=== PATIENT | male | born 1970 | race Hispanic/Latino ===

== ENCOUNTER 2022-03-29 20:32 | Inpatient (IN) | payer MEDICARE, MEDICAID ==
[~2022-03-29 20:32] MED LIST: Iopamidol-370 76% 500 ML 1 ML ONE
[2022-03-29] MEDS ORDERED: Ondansetron ODT 4 MG TAB ONE (21:48)
[2022-03-29] MEDS ORDERED: Ondansetron PF 4 MG/2 ML Vial ONE (22:18)
[2022-03-29 22:22] LABS: #Lymphocytes 1.5 thou/uL (1.20-3.40); #Neutrophils 10.2 thou/uL (1.40-6.50); %Basophils 0.2 % (0.0-1.0); %Eosinophils 0.2 % (0.0-10.0); %Monocytes 7.9 % (0.0-10.0); %Neutrophils 79.8 % (42.0-75.0); Hemoglobin 18.4 g/dL (14.0-18.0); Mean Corpuscular HGB CONC 32.7 g/dL (32.0-36.0); Mean Corpuscular Hemoglobin 32.4 pg (27.0-31.0); Mean Corpuscular Volume 99.3 fL (78.0-98.0); Mean Platelet Volume 8.5 fL (7.4-10.4); Platelet Count 205 thou/uL (130-400); RBC Distribution Width 12.8 % (11.5-14.5); Red Blood Cell (RBC) Count 5.67 mill/uL (4.70-6.10); White Blood Cell (WBC) Count 12.8 thou/uL (4.8-10.8)
[2022-03-29 22:42] LABS: ALT (SGPT) 37 U/L (8-55); AST (SGOT) 23 U/L (5-34); Albumin 4.7 g/dL (3.5-5.0); Alkaline Phosphatase 162 U/L (40-110); Anion Gap 17 mmol/L (10-20); BUN (Urea Nitrogen) 19 mg/dL (8.9-20.6); Calc. Creatinine Clearance 0 mL/min (70-130); Calcium 10.2 mg/dL (7.8-10.44); Carbon Dioxide 23 mmol/L (22-29); Chloride 110 mmol/L (98-107); Estimated GFR 91; Globulin 3.8 g/dL (2.4-3.5); Glucose 475 mg/dL (70-105); Lipase 14 U/L (8-78); Protein, Total 8.5 g/dL (6.0-8.3); Sodium 146 mmol/L (136-145)
[2022-03-29 23:04] LABS: Bilirubin Negative (Negative); Blood, Urine Negative (Negative); Clarity Clear (Clear); Glucose, Urine (Dipstick) Greater than 1000 mg/dL (Negative); Ketone, Urine 10 mg/dL (Negative); Leukocyte Negative Leu/uL (Negative); Nitrite Negative (Negative); Protein, Urine (Dipstick) Negative (Neg-Trace); Urobilinogen Normal mg/dL (Less than 2)
[2022-03-29 23:06] LABS: Specific Gravity, Urine 1.049 (1.002-1.036)
[2022-03-30] MEDS ORDERED: Ondansetron PF 4 MG/2 ML Vial IVP PRN (03:00)
[2022-03-30] MEDS ORDERED: Ondansetron ODT 4 MG TAB SL PRN (03:00)
[2022-03-30] MEDS: Sodium Chloride 0.9% 1,000 ML IV SCH ×2 (03:35→11:06)
[2022-03-30] MEDS ORDERED: Morphine 4 MG/ML VIAL ONE (08:08)
[2022-03-30] MEDS ORDERED: Dextrose 5% in Water 1,000 ML IV PRN (08:37)
[2022-03-30] MEDS ORDERED: Insulin Regular 300 UNITS/3 ML VIAL SC PRN ×2 (08:37)
[2022-03-30] MEDS ORDERED: Dextrose 50% Abboject 50 ML SYRINGE SLOW IVP PRN (08:37)
[2022-03-30] MEDS ORDERED: Insulin Regular 300 UNITS/3 ML VIAL SC SCH ×2 (08:45)
[2022-03-30 09:11] LABS: Hemoglobin A1c 8.1 % (4.0-6.0)
[2022-03-30 09:28] LABS: Troponin I Less than 0.010 ng/mL (< 0.028)
[2022-03-30] MEDS: Morphine 2 MG/ML VIAL SLOW IVP PRN (16:35)
[2022-03-30] MEDS: OLANZapine ODT 5 MG TAB PO SCH (20:09)
[2022-03-31 05:28] LABS: #Basophils 0.1 thou/uL (0.0-0.2); #Eosinphils 0.2 thou/uL (0.0-0.7); #Monocytes 1.1 thou/uL (0.11-0.59); #Neutrophils 5.4 thou/uL (1.40-6.50); %Basophils 0.8 % (0.0-1.0); %Eosinophils 1.9 % (0.0-10.0); %Lymphocytes 30.4 % (21.0-51.0); %Neutrophils 55.9 % (42.0-75.0); Hemoglobin 14.1 g/dL (14.0-18.0); Mean Platelet Volume 8.1 fL (7.4-10.4); Platelet Count 161 thou/uL (130-400); RBC Distribution Width 12.4 % (11.5-14.5); Red Blood Cell (RBC) Count 4.39 mill/uL (4.70-6.10); White Blood Cell (WBC) Count 9.7 thou/uL (4.8-10.8)
[2022-03-31 05:54] LABS: ALT (SGPT) 85 U/L (8-55); AST (SGOT) 85 U/L (5-34); Albumin 3.3 g/dL (3.5-5.0); Alkaline Phosphatase 130 U/L (40-110); Anion Gap 12 mmol/L (10-20); BUN (Urea Nitrogen) 9 mg/dL (8.9-20.6); Bilirubin, Total 1.4 mg/dL (0.2-1.2); Calc. Creatinine Clearance 125 mL/min (70-130); Calcium 8.6 mg/dL (7.8-10.44); Carbon Dioxide 27 mmol/L (22-29); Chloride 115 mmol/L (98-107); Estimated GFR 114; Globulin 2.5 g/dL (2.4-3.5); Glucose 125 mg/dL (70-105); Potassium 3.6 mmol/L (3.5-5.1); Protein, Total 5.8 g/dL (6.0-8.3); Sodium 150 mmol/L (136-145)
[2022-03-31] MEDS: Megestrol Acetate 40 MG TAB PO SCH (08:19)
[2022-03-31] MEDS: Escitalopram Oxalate 20 mg Tablet PO SCH (08:19)
[2022-03-31] MEDS ORDERED: Lactated Ringer's 1,000 ML IV SCH (18:30)
[2022-03-31] MEDS: OLANZapine ODT 5 MG TAB PO SCH (20:57)
[2022-04-01] MEDS: Morphine 2 MG/ML VIAL SLOW IVP PRN (03:54)
[2022-04-01 05:48] LABS: #Eosinphils 0.2 thou/uL (0.0-0.7); #Monocytes 0.9 thou/uL (0.11-0.59); #Neutrophils 4.4 thou/uL (1.40-6.50); %Basophils 0.3 % (0.0-1.0); %Eosinophils 2.1 % (0.0-10.0); %Lymphocytes 35.2 % (21.0-51.0); %Monocytes 10.8 % (0.0-10.0); %Neutrophils 51.6 % (42.0-75.0); Hemoglobin 14.3 g/dL (14.0-18.0); Mean Corpuscular HGB CONC 32.6 g/dL (32.0-36.0); Mean Corpuscular Hemoglobin 32.2 pg (27.0-31.0); Mean Corpuscular Volume 98.9 fL (78.0-98.0); Mean Platelet Volume 8.3 fL (7.4-10.4); Platelet Count 155 thou/uL (130-400); RBC Distribution Width 12.3 % (11.5-14.5); Red Blood Cell (RBC) Count 4.43 mill/uL (4.70-6.10); White Blood Cell (WBC) Count 8.6 thou/uL (4.8-10.8)
[2022-04-01 06:07] LABS: ALT (SGPT) 61 U/L (8-55); AST (SGOT) 46 U/L (5-34); Albumin 3.3 g/dL (3.5-5.0); Alkaline Phosphatase 127 U/L (40-110); Anion Gap 14 mmol/L (10-20); BUN (Urea Nitrogen) 7 mg/dL (8.9-20.6); Calc. Creatinine Clearance 123 mL/min (70-130); Calcium 8.6 mg/dL (7.8-10.44); Carbon Dioxide 26 mmol/L (22-29); Chloride 111 mmol/L (98-107); Estimated GFR 113; Globulin 2.5 g/dL (2.4-3.5); Glucose 101 mg/dL (70-105); Potassium 3.2 mmol/L (3.5-5.1); Protein, Total 5.8 g/dL (6.0-8.3); Sodium 148 mmol/L (136-145)
[2022-04-01 06:23] LABS: HBCM Index 0.08 S/CO (0-0.79); HBSAg Index 0.28 S/CO (0-0.99); Hep A IgM AB Non-Reactive (NonReactive); Hep A IgM S/CO 0.18 S/CO (0-0.79); Hep B Surf Ag Non-Reactive S/CO (NonReactive); Hep C IgG Ab Non-Reactive (NonReactive); Hep C Index 0.06 S/CO (0-0.79); Hepatitis B Core IgM Abs Non-Reactive (NonReactive)
[2022-04-01] MEDS: Lactated Ringer's 1,000 ML IV SCH ×2 (10:30→15:45)
[2022-04-01] MEDS: Potassium Chloride 20 MEQ TAB PO SCH ×2 (10:31→17:47)
[2022-04-01] MEDS: Megestrol Acetate 40 MG TAB PO SCH (10:31)
[2022-04-01] MEDS: Escitalopram Oxalate 20 mg Tablet PO SCH (10:31)
[2022-04-01] MEDS: OLANZapine ODT 5 MG TAB PO SCH (20:03)
[2022-04-02] MEDS: Morphine 2 MG/ML VIAL SLOW IVP PRN (01:19)
[2022-04-02 06:03] LABS: #Basophils 0.1 thou/uL (0.0-0.2); #Eosinphils 0.1 thou/uL (0.0-0.7); #Lymphocytes 2.5 thou/uL (1.20-3.40); #Neutrophils 6.4 thou/uL (1.40-6.50); %Basophils 0.6 % (0.0-1.0); %Lymphocytes 24.9 % (21.0-51.0); %Monocytes 10.2 % (0.0-10.0); %Neutrophils 63.4 % (42.0-75.0); Hemoglobin 15.8 g/dL (14.0-18.0); Mean Corpuscular HGB CONC 32.9 g/dL (32.0-36.0); Mean Corpuscular Hemoglobin 32.3 pg (27.0-31.0); Mean Corpuscular Volume 98.3 fL (78.0-98.0); Mean Platelet Volume 8.5 fL (7.4-10.4); Platelet Count 159 thou/uL (130-400); RBC Distribution Width 12.2 % (11.5-14.5); Red Blood Cell (RBC) Count 4.88 mill/uL (4.70-6.10)
[2022-04-02 06:38] LABS: Magnesium 1.9 mg/dL (1.6-2.6)
[2022-04-02 08:36] LABS: Albumin 3.5 g/dL (3.5-5.0)
[2022-04-02 08:37] LABS: Chloride 105 mmol/L (98-107); Potassium 3.9 mmol/L (3.5-5.1); Sodium 142 mmol/L (136-145)
[2022-04-02 08:38] LABS: Calcium 8.8 mg/dL (7.8-10.44)
[2022-04-02 08:39] LABS: Globulin 2.9 g/dL (2.4-3.5); Glucose 64 mg/dL (70-105); Protein, Total 6.4 g/dL (6.0-8.3)
[2022-04-02 08:40] LABS: Anion Gap 19 mmol/L (10-20); Carbon Dioxide 22 mmol/L (22-29)
[2022-04-02 08:41] LABS: Bilirubin, Total 1.2 mg/dL (0.2-1.2)
[2022-04-02 08:42] LABS: Alkaline Phosphatase 198 U/L (40-110); Calc. Creatinine Clearance 131 mL/min (70-130); Estimated GFR 115
[2022-04-02 08:43] LABS: BUN (Urea Nitrogen) 9 mg/dL (8.9-20.6)
[2022-04-02 08:44] LABS: AST (SGOT) 152 U/L (5-34)
[2022-04-02 08:45] LABS: ALT (SGPT) 106 U/L (8-55)
[2022-04-02] MEDS: Escitalopram Oxalate 20 mg Tablet PO SCH (09:05)
[2022-04-02] MEDS: Megestrol Acetate 40 MG TAB PO SCH (09:05)
[2022-04-02] MEDS: OLANZapine ODT 5 MG TAB PO SCH (20:39)
[2022-04-02] MEDS ORDERED: Dextrose 5 %-0.45 % NaCl 1,000 ML IV SCH (22:30)
[2022-04-03 05:20] LABS: #Eosinphils 0.3 thou/uL (0.0-0.7); #Lymphocytes 2.5 thou/uL (1.20-3.40); #Neutrophils 5.5 thou/uL (1.40-6.50); %Basophils 0.3 % (0.0-1.0); %Eosinophils 2.8 % (0.0-10.0); %Lymphocytes 27.1 % (21.0-51.0); %Monocytes 10.4 % (0.0-10.0); %Neutrophils 59.3 % (42.0-75.0); Hemoglobin 16.2 g/dL (14.0-18.0); Mean Corpuscular HGB CONC 33.1 g/dL (32.0-36.0); Mean Corpuscular Hemoglobin 32.9 pg (27.0-31.0); Mean Corpuscular Volume 99.2 fL (78.0-98.0); Mean Platelet Volume 8.4 fL (7.4-10.4); Platelet Count 168 thou/uL (130-400); RBC Distribution Width 12.1 % (11.5-14.5); Red Blood Cell (RBC) Count 4.94 mill/uL (4.70-6.10); White Blood Cell (WBC) Count 9.2 thou/uL (4.8-10.8)
[2022-04-03 05:47] LABS: ALT (SGPT) 74 U/L (8-55); AST (SGOT) 58 U/L (5-34); Albumin 3.6 g/dL (3.5-5.0); Alkaline Phosphatase 188 U/L (40-110); Anion Gap 20 mmol/L (10-20); BUN (Urea Nitrogen) 10 mg/dL (8.9-20.6); Bilirubin, Total 0.9 mg/dL (0.2-1.2); Calc. Creatinine Clearance 110 mL/min (70-130); Calcium 8.7 mg/dL (7.8-10.44); Carbon Dioxide 17 mmol/L (22-29); Chloride 106 mmol/L (98-107); Estimated GFR 110; Globulin 2.9 g/dL (2.4-3.5); Glucose 127 mg/dL (70-105); Potassium 3.8 mmol/L (3.5-5.1); Protein, Total 6.5 g/dL (6.0-8.3); Sodium 139 mmol/L (136-145)
[2022-04-03] MEDS: Escitalopram Oxalate 20 mg Tablet PO SCH (09:08)
[2022-04-03] MEDS: Megestrol Acetate 40 MG TAB PO SCH (09:09)
[2022-04-03 11:17] VITALS: BP 102/68; TEMP 98.4
[2022-04-03] MEDS ORDERED: metFORMIN 500 MG TAB PO SCH (17:00)
== END 2022-04-03 16:30 | disposition home or self-care (01) | DRG 445 ==
LOC: ERS 20:32 → SURG B 03-30 02:35 → ERHOLD 03-30 02:46 → SURG B 03-30 09:52 → OBSVTOIN 03-31 10:11
PROVIDERS: ADMIT Internal Medicine; ATTEND Internal Medicine
DX: K80.50 Calculus of bile duct without cholangitis or cholecystitis without obstruction (principal); E87.1 Hypo-osmolality and hyponatremia; Z20.822 Contact with and (suspected) exposure to COVID-19; F79 Unspecified intellectual disabilities; F20.9 Schizophrenia, unspecified; E87.6 Hypokalemia; E11.65 Type 2 diabetes mellitus with hyperglycemia; Z79.899 Other long term (current) drug therapy
CPT/HCPCS: 36415; 36416; 74177; 74181; 76705; 78226; 80053; 80074; 81003; 83036; 83690; 83735; 84484; 85025; 93005; 93010; 96361; 96374; 96375; A9537; J1815; J2270; J2405; J7042; J7050; J7120; Q0162; Q9967; S0179; U0003; U0005

== ENCOUNTER 2023-07-26 08:13 | Emergency (ER) | payer OTHER, MEDICAID ==
[2023-07-26 09:10] LABS: #Basophils 0.1 thou/uL (0.0-0.2); #Eosinphils 0.1 thou/uL (0.0-0.7); #Monocytes 0.9 thou/uL (0.11-0.59); %Basophils 0.5 % (0.0-1.0); %Eosinophils 0.9 % (0.0-10.0); %Lymphocytes 23.7 % (21.0-51.0); %Monocytes 9.3 % (0.0-10.0); %Neutrophils 65.4 % (42.0-75.0); Hematocrit 48.7 % (42.0-52.0); Hemoglobin 16.6 g/dL (14.0-18.0); Mean Corpuscular HGB CONC 34.1 g/dL (32.0-36.0); Mean Corpuscular Hemoglobin 32.6 pg (27.0-31.0); Mean Corpuscular Volume 95.7 fl (78.0-98.0); Platelet Count 190 10x3/uL (130-400); RBC Distribution Width 13.2 % (11.5-14.5); Red Blood Cell (RBC) Count 5.09 mill/uL (4.70-6.10); White Blood Cell (WBC) Count 9.2 10x3/uL (4.8-10.8)
[2023-07-26 09:33] LABS: ALT (SGPT) 36 U/L (8-55); AST (SGOT) 32 U/L (5-34); Albumin 4.7 g/dL (3.5-5.0); Alkaline Phosphatase 120 U/L (40-110); Anion Gap 14 mmol/L (10-20); BUN (Urea Nitrogen) 14 mg/dL (8.4-25.7); Bilirubin, Total 1.1 mg/dL (0.2-1.2); Calc. Creatinine Clearance 0 mL/min (70-130); Calcium 9.6 mg/dL (7.8-10.44); Carbon Dioxide 25 mmol/L (22-29); Chloride 104 mmol/L (98-107); Estimated GFR 110; Globulin 2.7 g/dL (2.4-3.5); Glucose 96 mg/dL (70-105); Lipase 8 U/L (8-78); Potassium 3.9 mmol/L (3.5-5.1); Protein, Total 7.4 g/dL (6.0-8.3); Sodium 139 mmol/L (136-145)
[2023-07-26] MEDS ORDERED: Iopamidol-370 76% 500 ML MDV (1 ML CHARGE) ONE (14:52)
== END 2023-07-26 11:17 | disposition home or self-care (01) ==
LOC: ERS 08:13
DX: R10.11 Right upper quadrant pain (principal); F50.89 Other specified eating disorder; E78.00 Pure hypercholesterolemia, unspecified; E11.9 Type 2 diabetes mellitus without complications; Z79.899 Other long term (current) drug therapy
CPT/HCPCS: 36415; 71045; 74177; 80053; 83690; 85025; 93005; Q9967

== ENCOUNTER 2023-08-16 00:34 | Emergency (ER) | payer OTHER, MEDICAID ==
[2023-08-16 01:26] LABS: #Monocytes 0.6 thou/uL (0.11-0.59); #Neutrophils 6.1 thou/uL (1.40-6.50); %Basophils 0.4 % (0.0-1.0); %Eosinophils 0.4 % (0.0-10.0); %Monocytes 7.7 % (0.0-10.0); %Neutrophils 74.3 % (42.0-75.0); Hematocrit 51.8 % (42.0-52.0); Hemoglobin 17.5 g/dL (14.0-18.0); Mean Corpuscular HGB CONC 33.8 g/dL (32.0-36.0); Mean Corpuscular Hemoglobin 32.2 pg (27.0-31.0); Mean Corpuscular Volume 95.4 fl (78.0-98.0); Platelet Count 157 10x3/uL (130-400); Red Blood Cell (RBC) Count 5.43 mill/uL (4.70-6.10); White Blood Cell (WBC) Count 8.2 10x3/uL (4.8-10.8)
[2023-08-16 01:52] LABS: ALT (SGPT) 26 U/L (8-55); AST (SGOT) 25 U/L (5-34); Albumin 4.2 g/dL (3.5-5.0); Alkaline Phosphatase 152 U/L (40-110); BUN (Urea Nitrogen) 12 mg/dL (8.4-25.7); Calc. Creatinine Clearance 0 mL/min (70-130); Calcium 9.4 mg/dL (7.8-10.44); Carbon Dioxide 16 mmol/L (22-29); Estimated GFR 104; Globulin 3.2 g/dL (2.4-3.5); Glucose 141 mg/dL (70-105); Lipase 4 U/L (8-78); Protein, Total 7.4 g/dL (6.0-8.3)
[2023-08-16 02:04] LABS: Chloride 104 mmol/L (98-107); Sodium 139 mmol/L (136-145)
[2023-08-16 02:06] LABS: Anion Gap 25 mmol/L (10-20)
[2023-08-16] MEDS ORDERED: Ondansetron PF 4 MG/2 ML Vial ONE (05:36)
[2023-08-16] MEDS ORDERED: Famotidine/PF 20 mg/2ml Vial ONE (05:44)
== END 2023-08-16 06:47 | disposition home or self-care (01) ==
LOC: ERS 00:34
DX: E86.0 Dehydration (principal); R63.0 Anorexia; E11.9 Type 2 diabetes mellitus without complications; E78.00 Pure hypercholesterolemia, unspecified; Z79.899 Other long term (current) drug therapy; Z79.84 Long term (current) use of oral hypoglycemic drugs
CPT/HCPCS: 36415; 71045; 80053; 83690; 85025; 93005; 96361; 96374; 96375; J2405; S0028

== ENCOUNTER 2023-09-11 17:17 | Inpatient (IN) | payer OTHER, MEDICAID ==
[~2023-09-11 17:17] MED LIST changes: -Iopamidol-370 76% 500 ML 1 ML ONE; +Iopamidol-370 76% 500 ML MDV (1 ML CHARGE) ONE
[2023-09-11] MEDS ORDERED: Morphine 4 MG/ML VIAL ONE (17:52)
[2023-09-11] MEDS ORDERED: Ondansetron PF 4 MG/2 ML Vial ONE (17:53)
[2023-09-11] MEDS ORDERED: Ketorolac Tromethamine 30 MG (1 mL) VIAL ONE (17:53)
[2023-09-11 18:30] LABS: #Basophils 0.1 thou/uL (0.0-0.2); #Eosinphils 0.1 thou/uL (0.0-0.7); #Monocytes 1.1 thou/uL (0.11-0.59); #Neutrophils 7.4 thou/uL (1.40-6.50); %Basophils 0.7 % (0.0-1.0); %Lymphocytes 13.5 % (21.0-51.0); %Monocytes 11.1 % (0.0-10.0); %Neutrophils 71.9 % (42.0-75.0); Hematocrit 39.9 % (42.0-52.0); Hemoglobin 13.6 g/dL (14.0-18.0); Mean Corpuscular HGB CONC 34.1 g/dL (32.0-36.0); Mean Corpuscular Hemoglobin 32.1 pg (27.0-31.0); Mean Corpuscular Volume 94.1 fl (78.0-98.0); Mean Platelet Volume 9.4 fL (7.4-10.4); Platelet Count 202 10x3/uL (130-400); RBC Distribution Width 13.2 % (11.5-14.5); Red Blood Cell (RBC) Count 4.24 mill/uL (4.70-6.10); White Blood Cell (WBC) Count 10.3 10x3/uL (4.8-10.8)
[2023-09-11 18:52] LABS: ALT (SGPT) 34 U/L (8-55); AST (SGOT) 33 U/L (5-34); Albumin 2.9 g/dL (3.5-5.0); Alkaline Phosphatase 88 U/L (40-110); Anion Gap 16 mmol/L (10-20); BUN (Urea Nitrogen) 11 mg/dL (8.4-25.7); Bilirubin, Total 0.6 mg/dL (0.2-1.2); Calc. Creatinine Clearance 0 mL/min (70-130); Calcium 7.5 mg/dL (7.8-10.44); Carbon Dioxide 21 mmol/L (22-29); Chloride 104 mmol/L (98-107); Estimated GFR 113; Globulin 2.2 g/dL (2.4-3.5); Glucose 86 mg/dL (70-105); Potassium 3.3 mmol/L (3.5-5.1); Protein, Total 5.1 g/dL (6.0-8.3); Sodium 138 mmol/L (136-145)
[2023-09-11 21:21] LABS: Lipase 5 U/L (8-78); Magnesium 1.7 mg/dL (1.6-2.6)
[2023-09-11] MEDS ORDERED: Potassium Chloride 20 MEQ TAB ONE (22:35)
[2023-09-11] MEDS ORDERED: Sodium Chloride 0.9% 100 ML ONE (23:50)
[2023-09-11] MEDS ORDERED: cefTRIAXone (ROCEPHIN) 1 GM VIAL ONE (23:50)
[2023-09-12 00:33] LABS: Bilirubin Negative (Negative); Blood, Urine 3+ (Negative); CAUTI Indications for Culture Acute Hematuria; Clarity Clear (Clear); Glucose, Urine (Dipstick) Normal (Negative); Ketone, Urine 100 mg/dL (Negative); Leukocyte Negative Leu/uL (Negative); Nitrite Negative (Negative); Protein, Urine (Dipstick) 10 mg/dL (Neg-Trace); RBC/HPF Greater than 50 HPF (0-3); Squamous Epithelial 0-3 HPF (0-3); Urobilinogen 3 mg/dL (Less than 2); pH, Urine 5.5 (5.0-9.0)
[2023-09-12 00:37] LABS: Bacteria/HPF 1+ HPF (None Seen); Specific Gravity, Urine Greater than 1.060 (1.002-1.036)
[2023-09-12 00:38] LABS: Urine Culture Reflex No No
[2023-09-12] MEDS ORDERED: Acetaminophen 325 MG TAB PO PRN (01:14)
[2023-09-12] MEDS ORDERED: Ibuprofen 800 MG TAB PO PRN (03:03)
[2023-09-12] MEDS ORDERED: traZODone HCl 50 MG TAB PO PRN (03:31)
[2023-09-12 03:39] VITALS: BMI 17.4
[2023-09-12] MEDS: Lactated Ringer's 1,000 ML IV SCH ×2 (03:59→15:27)
[2023-09-12] MEDS: glipiZIDE 5 MG TAB PO SCH ×2 (08:34→17:22)
[2023-09-12] MEDS: Clobetasol 0.05% Cream 15 gm Tube TOP SCH ×2 (08:34→20:17)
[2023-09-12] MEDS: Enoxaparin 40 MG (0.4 mL) SYRINGE SC SCH (08:34)
[2023-09-12] MEDS: Escitalopram Oxalate 20 mg Tablet PO SCH (08:34)
[2023-09-12] MEDS: Polyethylene Glycol 3350 17 GM Packet PO SCH (08:34)
[2023-09-12] MEDS: metFORMIN 500 MG TAB PO SCH ×2 (08:34→17:22)
[2023-09-12 09:09] LABS: #Basophils 0.1 thou/uL (0.0-0.2); #Eosinphils 0.1 thou/uL (0.0-0.7); #Monocytes 1.1 thou/uL (0.11-0.59); #Neutrophils 5.6 thou/uL (1.40-6.50); %Basophils 0.6 % (0.0-1.0); %Eosinophils 1.5 % (0.0-10.0); %Lymphocytes 20.1 % (21.0-51.0); %Monocytes 12.3 % (0.0-10.0); %Neutrophils 64.2 % (42.0-75.0); Hematocrit 42.1 % (42.0-52.0); Hemoglobin 14.4 g/dL (14.0-18.0); Mean Corpuscular HGB CONC 34.2 g/dL (32.0-36.0); Mean Corpuscular Hemoglobin 32.4 pg (27.0-31.0); Mean Corpuscular Volume 94.6 fl (78.0-98.0); Mean Platelet Volume 9.1 fL (7.4-10.4); Platelet Count 222 10x3/uL (130-400); RBC Distribution Width 13.4 % (11.5-14.5); Red Blood Cell (RBC) Count 4.45 mill/uL (4.70-6.10); White Blood Cell (WBC) Count 8.7 10x3/uL (4.8-10.8)
[2023-09-12 09:37] LABS: ALT (SGPT) 37 U/L (8-55); AST (SGOT) 30 U/L (5-34); Albumin 3.2 g/dL (3.5-5.0); Alkaline Phosphatase 100 U/L (40-110); Anion Gap 14 mmol/L (10-20); BUN (Urea Nitrogen) 9 mg/dL (8.4-25.7); Bilirubin, Total 0.6 mg/dL (0.2-1.2); Calc. Creatinine Clearance 117 mL/min (70-130); Calcium 8.2 mg/dL (7.8-10.44); Carbon Dioxide 23 mmol/L (22-29); Chloride 103 mmol/L (98-107); Estimated GFR 120; Globulin 2.5 g/dL (2.4-3.5); Glucose 100 mg/dL (70-105); Potassium 3.9 mmol/L (3.5-5.1); Protein, Total 5.7 g/dL (6.0-8.3); Sodium 136 mmol/L (136-145)
[2023-09-12] MEDS: OLANZapine ODT 5 MG TAB PO SCH (20:17)
[2023-09-12] MEDS: Atorvastatin Calcium 20 MG TAB PO SCH (20:17)
[2023-09-12] MEDS ORDERED: cefTRIAXone\\ROCEPHIN 1 GM in Sodium Chloride 0.9% 100 ML IVPB SCH (23:00)
[2023-09-13] MEDS: Lactated Ringer's 1,000 ML IV SCH ×2 (01:56→13:07)
[2023-09-13 07:37] LABS: #Basophils 0.1 thou/uL (0.0-0.2); #Eosinphils 0.2 thou/uL (0.0-0.7); #Monocytes 1.2 thou/uL (0.11-0.59); #Neutrophils 6.7 thou/uL (1.40-6.50); %Basophils 0.5 % (0.0-1.0); %Eosinophils 2.2 % (0.0-10.0); %Lymphocytes 18.2 % (21.0-51.0); %Monocytes 11.9 % (0.0-10.0); %Neutrophils 66.2 % (42.0-75.0); Hematocrit 37.9 % (42.0-52.0); Hemoglobin 12.9 g/dL (14.0-18.0); Mean Corpuscular Hemoglobin 31.6 pg (27.0-31.0); Mean Corpuscular Volume 92.9 fl (78.0-98.0); Mean Platelet Volume 9.2 fL (7.4-10.4); Platelet Count 214 10x3/uL (130-400); RBC Distribution Width 13.3 % (11.5-14.5); Red Blood Cell (RBC) Count 4.08 mill/uL (4.70-6.10); White Blood Cell (WBC) Count 10.1 10x3/uL (4.8-10.8)
[2023-09-13 08:12] LABS: ALT (SGPT) 30 U/L (8-55); AST (SGOT) 27 U/L (5-34); Albumin 2.9 g/dL (3.5-5.0); Alkaline Phosphatase 88 U/L (40-110); Anion Gap 10 mmol/L (10-20); BUN (Urea Nitrogen) 4 mg/dL (8.4-25.7); Bilirubin, Total 0.8 mg/dL (0.2-1.2); Calc. Creatinine Clearance 117 mL/min (70-130); Calcium 8.2 mg/dL (7.8-10.44); Carbon Dioxide 31 mmol/L (22-29); Chloride 97 mmol/L (98-107); Estimated GFR 120; Globulin 2.3 g/dL (2.4-3.5); Glucose 70 mg/dL (70-105); Potassium 3.5 mmol/L (3.5-5.1); Protein, Total 5.2 g/dL (6.0-8.3); Sodium 134 mmol/L (136-145)
[2023-09-13] MEDS: glipiZIDE 5 MG TAB PO SCH (08:20)
[2023-09-13] MEDS: Escitalopram Oxalate 20 mg Tablet PO SCH (08:20)
[2023-09-13] MEDS: metFORMIN 500 MG TAB PO SCH ×2 (08:20→17:08)
[2023-09-13] MEDS: Enoxaparin 40 MG (0.4 mL) SYRINGE SC SCH (08:20)
[2023-09-13] MEDS: Polyethylene Glycol 3350 17 GM Packet PO SCH (08:21)
[2023-09-13] MEDS: Clobetasol 0.05% Cream 15 gm Tube TOP SCH ×2 (08:21→20:10)
[2023-09-13] MEDS ORDERED: Dextrose 5% in Water 1,000 ML IV PRN (09:36)
[2023-09-13] MEDS ORDERED: Dextrose 50% Abboject 50 ML SYRINGE SLOW IVP PRN (09:36)
[2023-09-13] MEDS ORDERED: Glucagon 1 MG/ML KIT IM PRN (09:36)
[2023-09-13] MEDS ORDERED: HumaLOG 300 UNITS/3 ML VIAL SC PRN (09:36)
[2023-09-13] MEDS: Atorvastatin Calcium 20 MG TAB PO SCH (20:10)
[2023-09-13] MEDS: OLANZapine ODT 5 MG TAB PO SCH (20:10)
[2023-09-14] MEDS: Lactated Ringer's 1,000 ML IV SCH ×3 (00:14→21:48)
[2023-09-14 08:44] LABS: #Eosinphils 0.2 thou/uL (0.0-0.7); #Neutrophils 6.9 thou/uL (1.40-6.50); %Basophils 0.3 % (0.0-1.0); %Eosinophils 1.9 % (0.0-10.0); %Lymphocytes 16.4 % (21.0-51.0); %Monocytes 10.1 % (0.0-10.0); %Neutrophils 70.3 % (42.0-75.0); Hemoglobin 13.9 g/dL (14.0-18.0); Mean Corpuscular HGB CONC 34.8 g/dL (32.0-36.0); Mean Corpuscular Hemoglobin 32.3 pg (27.0-31.0); Mean Platelet Volume 9.1 fL (7.4-10.4); Platelet Count 235 10x3/uL (130-400); RBC Distribution Width 13.4 % (11.5-14.5); White Blood Cell (WBC) Count 9.8 10x3/uL (4.8-10.8)
[2023-09-14] MEDS: Polyethylene Glycol 3350 17 GM Packet PO SCH (08:50)
[2023-09-14] MEDS: metFORMIN 500 MG TAB PO SCH ×2 (08:50→16:19)
[2023-09-14] MEDS: Escitalopram Oxalate 20 mg Tablet PO SCH (08:50)
[2023-09-14] MEDS: Clobetasol 0.05% Cream 15 gm Tube TOP SCH ×2 (08:51→20:56)
[2023-09-14] MEDS: Enoxaparin 30 MG (0.3 mL) SYRINGE SC SCH (08:53)
[2023-09-14 09:17] LABS: ALT (SGPT) 30 U/L (8-55); AST (SGOT) 33 U/L (5-34); Alkaline Phosphatase 90 U/L (40-110); Anion Gap 17 mmol/L (10-20); BUN (Urea Nitrogen) Less than 4 mg/dL (8.4-25.7); Calc. Creatinine Clearance 123 mL/min (70-130); Calcium 8.2 mg/dL (7.8-10.44); Carbon Dioxide 26 mmol/L (22-29); Chloride 96 mmol/L (98-107); Estimated GFR 122; Globulin 2.8 g/dL (2.4-3.5); Potassium 3.7 mmol/L (3.5-5.1); Protein, Total 5.8 g/dL (6.0-8.3); Sodium 135 mmol/L (136-145)
[2023-09-14 09:23] LABS: Glucose 52 mg/dL (70-105)
[2023-09-14] MEDS: Atorvastatin Calcium 20 MG TAB PO SCH ×2 (21:39→21:46)
[2023-09-14] MEDS: OLANZapine ODT 5 MG TAB PO SCH (21:45)
[2023-09-15 06:33] LABS: #Eosinphils 0.3 thou/uL (0.0-0.7); #Monocytes 0.7 thou/uL (0.11-0.59); #Neutrophils 4.1 thou/uL (1.40-6.50); %Basophils 0.6 % (0.0-1.0); %Eosinophils 4.6 % (0.0-10.0); %Lymphocytes 25.1 % (21.0-51.0); %Neutrophils 58.7 % (42.0-75.0); Hemoglobin 14.7 g/dL (14.0-18.0); Mean Corpuscular Hemoglobin 32.8 pg (27.0-31.0); Mean Corpuscular Volume 93.8 fl (78.0-98.0); Platelet Count 226 10x3/uL (130-400); RBC Distribution Width 13.5 % (11.5-14.5); Red Blood Cell (RBC) Count 4.48 mill/uL (4.70-6.10)
[2023-09-15 06:56] LABS: ALT (SGPT) 27 U/L (8-55); AST (SGOT) 27 U/L (5-34); Alkaline Phosphatase 90 U/L (40-110); Anion Gap 12 mmol/L (10-20); BUN (Urea Nitrogen) Less than 4 mg/dL (8.4-25.7); Calc. Creatinine Clearance 123 mL/min (70-130); Calcium 8.1 mg/dL (7.8-10.44); Carbon Dioxide 30 mmol/L (22-29); Chloride 99 mmol/L (98-107); Estimated GFR 122; Globulin 2.7 g/dL (2.4-3.5); Glucose 81 mg/dL (70-105); Potassium 3.3 mmol/L (3.5-5.1); Protein, Total 5.7 g/dL (6.0-8.3); Sodium 138 mmol/L (136-145)
[2023-09-15] MEDS: Lactated Ringer's 1,000 ML IV SCH (08:34)
[2023-09-15] MEDS: Escitalopram Oxalate 20 mg Tablet PO SCH (08:35)
[2023-09-15] MEDS: Enoxaparin 30 MG (0.3 mL) SYRINGE SC SCH (08:35)
[2023-09-15] MEDS: metFORMIN 500 MG TAB PO SCH ×2 (08:35→09:01)
[2023-09-15] MEDS: Polyethylene Glycol 3350 17 GM Packet PO SCH (08:35)
[2023-09-15] MEDS: Clobetasol 0.05% Cream 15 gm Tube TOP SCH (08:37)
[2023-09-15] MEDS ORDERED: Potassium Chloride 20 MEQ TAB PO SCH ×2 (08:45→09:45)
[2023-09-15] MEDS ORDERED: FLU VACC QS2023-24(6MOS UP)/PF 60 MCG/0.5 ML SYRINGE IM ONE (09:00)
[2023-09-15 10:20] LABS: Magnesium 1.7 mg/dL (1.6-2.6); Phosphorus 2.9 mg/dL (2.3-4.7)
[2023-09-15 12:46] VITALS: TEMP 98
[2023-09-15] MEDS ORDERED: Magnesium Oxide 400 MG TAB PO SCH ×2 (13:00→21:00)
[2023-09-15 13:22] VITALS: BP 142/78
== END 2023-09-15 15:05 | DRG 638 ==
LOC: ERS 17:17 → OBSVTOIN 09-12 03:17 → T4-B 09-12 03:17
PROVIDERS: ADMIT Family Medicine; ATTEND Family Medicine
DX: E11.649 Type 2 diabetes mellitus with hypoglycemia without coma (principal); Z68.1 Body mass index [BMI] 19.9 or less, adult; E86.0 Dehydration; R55 Syncope and collapse; K57.30 Diverticulosis of large intestine without perforation or abscess without bleeding; R62.7 Adult failure to thrive; R53.81 Other malaise; Z87.440 Personal history of urinary (tract) infections; E87.6 Hypokalemia; F41.8 Other specified anxiety disorders; F32.A Depression, unspecified; R31.0 Gross hematuria; W19.XXXA Unspecified fall, initial encounter; Z79.899 Other long term (current) drug therapy; Z79.84 Long term (current) use of oral hypoglycemic drugs
CPT/HCPCS: 36415; 36416; 51702; 71045; 74177; 80053; 81001; 83605; 83690; 83735; 84100; 85025; 87086; 93005; 93010; 96361; 96365; 96375; J0696; J1650; J1885; J2270; J2405; J3490; J7120; Q9967

== ENCOUNTER 2023-09-27 13:36 | Inpatient (IN) | payer OTHER, MEDICAID ==
[~2023-09-27 13:36] MED LIST changes: -Iopamidol-370 76% 500 ML MDV (1 ML CHARGE) ONE; +PHENYLEPHRINE-NS 100 MCG/ML 10 ML SYRINGE ONE
[2023-09-27 14:36] LABS: #Neutrophils 9.9 thou/uL (1.40-6.50); %Basophils 0.1 % (0.0-1.0); %Lymphocytes 8.2 % (21.0-51.0); %Monocytes 8.4 % (0.0-10.0); %Neutrophils 82.7 % (42.0-75.0); Hematocrit 53.1 % (42.0-52.0); Mean Corpuscular HGB CONC 33.9 g/dL (32.0-36.0); Mean Corpuscular Hemoglobin 32.5 pg (27.0-31.0); Mean Corpuscular Volume 95.8 fl (78.0-98.0); Mean Platelet Volume 9.8 fL (7.4-10.4); Platelet Count 249 10x3/uL (130-400); Red Blood Cell (RBC) Count 5.54 mill/uL (4.70-6.10); White Blood Cell (WBC) Count 11.9 10x3/uL (4.8-10.8)
[2023-09-27 15:16] LABS: Albumin 4.2 g/dL (3.5-5.0); Alkaline Phosphatase 143 U/L (40-110); Bilirubin, Total 1.6 mg/dL (0.2-1.2); Calcium 9.7 mg/dL (7.8-10.44); Carbon Dioxide 24 mmol/L (22-29); Chloride 107 mmol/L (98-107); Globulin 3.7 g/dL (2.4-3.5); Glucose 279 mg/dL (70-105); Protein, Total 7.9 g/dL (6.0-8.3)
[2023-09-27 15:17] LABS: Calc. Creatinine Clearance 0 mL/min (70-130); Estimated GFR 104
[2023-09-27 15:18] LABS: AST (SGOT) 34 U/L (5-34); BUN (Urea Nitrogen) 27 mg/dL (8.4-25.7)
[2023-09-27 15:19] LABS: ALT (SGPT) 36 U/L (8-55); Magnesium 2.5 mg/dL (1.6-2.6)
[2023-09-27 15:27] LABS: Anion Gap 24 mmol/L (10-20); Sodium 148 mmol/L (136-145)
[2023-09-27 16:38] LABS: Actual Bicarbonate (HCO3v) 19.9 mEq/L (22-28); Base Excess 0.6 mEq/L (-2.0 to +3.0); Chloride (VBG) 106 mmol/L (98-106); Hematocrit-VBG 57 % (42.0-52.0); Hemoglobin (Hb) 19.5 g/dL (13.1-17.2); Potassium (VBG) 3.89 mmol/L (3.70-5.30); Sodium 148 mmol/L (133-146); pH (venous) 7.562 (7.32-7.43)
[2023-09-27 17:15] LABS: Troponin I Less than 0.010 ng/mL (< 0.028)
[2023-09-27 17:23] LABS: Phosphorus 4.1 mg/dL (2.3-4.7)
[2023-09-27 18:11] LABS: Bacteria/HPF None Seen HPF (None Seen); Bilirubin 1+ (Negative); Blood, Urine Trace (Negative); CAUTI Indications for Culture Alt mental st,lethar; Clarity Clear (Clear); Glucose, Urine (Dipstick) 100 mg/dL (Negative); Ketone, Urine 80 mg/dL (Negative); Leukocyte Negative Leu/uL (Negative); Nitrite Negative (Negative); Protein, Urine (Dipstick) 50 mg/dL (Neg-Trace); Specific Gravity, Urine 1.034 (1.002-1.036); Squamous Epithelial 0-3 HPF (0-3); Urobilinogen 6 mg/dL (Less than 2); WBC/HPF 0-3 HPF (0-3)
[2023-09-27 18:12] LABS: Urine Culture Reflex No No
[2023-09-27] MEDS ORDERED: Acetaminophen 325 MG TAB PO PRN (20:45)
[2023-09-27] MEDS ORDERED: Ondansetron PF 4 MG/2 ML Vial IVP PRN (20:45)
[2023-09-27] MEDS ORDERED: Ondansetron ODT 4 MG TAB SL PRN (20:45)
[2023-09-27] MEDS ORDERED: Sodium Chloride 0.9% 1,000 ML IV SCH (20:45)
[2023-09-27] MEDS ORDERED: Dextrose 50% Abboject 50 ML SYRINGE SLOW IVP PRN (21:20)
[2023-09-27] MEDS ORDERED: HumaLOG 300 UNITS/3 ML VIAL SC PRN (21:20)
[2023-09-27] MEDS ORDERED: Dextrose 5% in Water 1,000 ML IV PRN (21:20)
[2023-09-27] MEDS ORDERED: Glucagon 1 MG/ML KIT IM PRN (21:20)
[2023-09-27 22:38] LABS: Lactic Acid 1.3 mmol/L (0.5-2.2)
[2023-09-27] MEDS ORDERED: Lactated Ringer's 1,000 ML IV SCH (23:00)
[2023-09-27 23:47] LABS: Anion Gap 14 mmol/L (10-20); BUN (Urea Nitrogen) 22 mg/dL (8.4-25.7); Calc. Creatinine Clearance 0 mL/min (70-130); Calcium 7.9 mg/dL (7.8-10.44); Carbon Dioxide 23 mmol/L (22-29); Chloride 117 mmol/L (98-107); Critical Call Chemistry NUR.RR5@2345; Estimated GFR 114; Glucose 166 mg/dL (70-105); Potassium 3.2 mmol/L (3.5-5.1); Sodium 151 mmol/L (136-145)
[2023-09-28] MEDS ORDERED: Potassium Chloride 20 MEQ TAB PO SCH ×2 (00:15)
[2023-09-28] MEDS ORDERED: Potassium Chloride 40 MEQ in Dextrose 5% in Water 1,000 ML IV SCH (00:15)
[2023-09-28] MEDS ORDERED: Potassium Chloride 20 MEQ in Lactated Ringer's 1,000 ML IV SCH (00:30)
[2023-09-28] MEDS ORDERED: Potassium Chloride 20 MEQ TAB ONE (01:02)
[2023-09-28] MEDS: Dextrose 5% in Water 1,000 ML IV SCH ×2 (01:19→11:14)
[2023-09-28] MEDS ORDERED: Potassium Chloride 20 MEQ (100 mL) BAG ONE ×2 (02:35→03:43)
[2023-09-28] MEDS: Potassium Chloride 20 MEQ in Premix 1 BAG IVPB SCH ×2 (03:09→05:20)
[2023-09-28 05:48] LABS: #Monocytes 1.2 thou/uL (0.11-0.59); #Neutrophils 8.9 thou/uL (1.40-6.50); %Basophils 0.1 % (0.0-1.0); %Eosinophils 0.3 % (0.0-10.0); %Lymphocytes 11.2 % (21.0-51.0); %Monocytes 10.3 % (0.0-10.0); %Neutrophils 77.8 % (42.0-75.0); Mean Corpuscular HGB CONC 33.5 g/dL (32.0-36.0); Mean Corpuscular Hemoglobin 32.4 pg (27.0-31.0); Mean Corpuscular Volume 96.9 fl (78.0-98.0); Mean Platelet Volume 10.1 fL (7.4-10.4); Platelet Count 184 10x3/uL (130-400); Red Blood Cell (RBC) Count 4.47 mill/uL (4.70-6.10); White Blood Cell (WBC) Count 11.5 10x3/uL (4.8-10.8)
[2023-09-28 05:52] LABS: Hematocrit 43.3 % (42.0-52.0); Hemoglobin 14.5 g/dL (14.0-18.0)
[2023-09-28 06:24] LABS: ALT (SGPT) 24 U/L (8-55); AST (SGOT) 22 U/L (5-34); Albumin 3.3 g/dL (3.5-5.0); Alkaline Phosphatase 111 U/L (40-110); Anion Gap 16 mmol/L (10-20); BUN (Urea Nitrogen) 18 mg/dL (8.4-25.7); Bilirubin, Total 1.3 mg/dL (0.2-1.2); Calc. Creatinine Clearance 98 mL/min (70-130); Calcium 8.4 mg/dL (7.8-10.44); Carbon Dioxide 23 mmol/L (22-29); Chloride 113 mmol/L (98-107); Estimated GFR 112; Globulin 2.6 g/dL (2.4-3.5); Glucose 244 mg/dL (70-105); Magnesium 1.8 mg/dL (1.6-2.6); Potassium 3.8 mmol/L (3.5-5.1); Protein, Total 5.9 g/dL (6.0-8.3); Sodium 148 mmol/L (136-145)
[2023-09-28] MEDS ORDERED: HumaLOG 300 UNITS/3 ML VIAL ONE (06:56)
[2023-09-28] MEDS: HumaLOG 300 UNITS/3 ML VIAL SC PRN ×2 (07:02→13:43)
[2023-09-28 08:08] LABS: Phosphorus 2.7 mg/dL (2.3-4.7)
[2023-09-28] MEDS: Escitalopram Oxalate 20 mg Tablet PO SCH (08:52)
[2023-09-28] MEDS: Pantoprazole 40 MG VIAL IVP SCH (08:52)
[2023-09-28] MEDS ORDERED: Enoxaparin 40 MG (0.4 mL) SYRINGE SC SCH (09:00)
[2023-09-28] MEDS ORDERED: Enoxaparin 30 MG (0.3 mL) SYRINGE SC SCH (09:15)
[2023-09-28] MEDS ORDERED: Enoxaparin 30 MG (0.3 mL) SYRINGE ONE (10:18)
[2023-09-28 13:29] LABS: Anion Gap 15 mmol/L (10-20); BUN (Urea Nitrogen) 11 mg/dL (8.4-25.7); Calc. Creatinine Clearance 100 mL/min (70-130); Carbon Dioxide 21 mmol/L (22-29); Chloride 106 mmol/L (98-107); Estimated GFR 113; Glucose 303 mg/dL (70-105); Potassium 4.2 mmol/L (3.5-5.1); Sodium 138 mmol/L (136-145)
[2023-09-28] MEDS ORDERED: Magnesium 2 GM/50 ML(in water) 2 GM in Premix 1 BAG IVPB SCH (15:15)
[2023-09-28] MEDS ORDERED: Magnesium 2 GM/50 ML BAG (IN WATER) ONE (15:49)
[2023-09-28] MEDS: Lactated Ringer's 1,000 ML IV SCH ×2 (16:00→23:45)
[2023-09-28] MEDS: Atorvastatin Calcium 20 MG TAB PO SCH (23:15)
[2023-09-28] MEDS: traZODone HCl 50 MG TAB PO PRN (23:15)
[2023-09-28] MEDS: OLANZapine ODT 5 MG TAB PO SCH (23:16)
[2023-09-29] MEDS: Lactated Ringer's 1,000 ML IV SCH ×3 (01:21→16:47)
[2023-09-29 04:43] LABS: %Basophils 0.1 % (0.0-1.0); %Eosinophils 0.2 % (0.0-10.0); %Lymphocytes 9.1 % (21.0-51.0); %Monocytes 7.3 % (0.0-10.0); %Neutrophils 82.7 % (42.0-75.0); Hematocrit 43.1 % (42.0-52.0); Hemoglobin 14.8 g/dL (14.0-18.0); Mean Corpuscular HGB CONC 34.3 g/dL (32.0-36.0); Mean Corpuscular Hemoglobin 32.5 pg (27.0-31.0); Mean Corpuscular Volume 94.5 fl (78.0-98.0); Mean Platelet Volume 10.3 fL (7.4-10.4); Platelet Count 153 10x3/uL (130-400); RBC Distribution Width 14.4 % (11.5-14.5); Red Blood Cell (RBC) Count 4.56 mill/uL (4.70-6.10); White Blood Cell (WBC) Count 13.3 10x3/uL (4.8-10.8)
[2023-09-29 05:08] LABS: ALT (SGPT) 56 U/L (8-55); AST (SGOT) 58 U/L (5-34); Albumin 2.9 g/dL (3.5-5.0); Alkaline Phosphatase 183 U/L (40-110); Anion Gap 16 mmol/L (10-20); BUN (Urea Nitrogen) 6 mg/dL (8.4-25.7); Bilirubin, Total 2.2 mg/dL (0.2-1.2); Calc. Creatinine Clearance 137 mL/min (70-130); Carbon Dioxide 26 mmol/L (22-29); Chloride 100 mmol/L (98-107); Estimated GFR 124; Globulin 2.5 g/dL (2.4-3.5); Glucose 119 mg/dL (70-105); Magnesium 1.9 mg/dL (1.6-2.6); Phosphorus 2.6 mg/dL (2.3-4.7); Potassium 2.8 mmol/L (3.5-5.1); Protein, Total 5.4 g/dL (6.0-8.3); Sodium 139 mmol/L (136-145)
[2023-09-29] MEDS ORDERED: Lidocaine 1% PF 5 ML VIAL ONE (08:08)
[2023-09-29] MEDS ORDERED: PROPOFOL 20 ML ONE (08:08)
[2023-09-29] MEDS ORDERED: Etomidate 40 MG (20 mL) VIAL ONE (08:08)
[2023-09-29 08:48] LABS: Anion Gap 16 mmol/L (10-20); BUN (Urea Nitrogen) 5 mg/dL (8.4-25.7); Calc. Creatinine Clearance 132 mL/min (70-130); Calcium 7.7 mg/dL (7.8-10.44); Carbon Dioxide 23 mmol/L (22-29); Chloride 102 mmol/L (98-107); Estimated GFR 123; Glucose 118 mg/dL (70-105); Potassium 3.1 mmol/L (3.5-5.1); Sodium 138 mmol/L (136-145)
[2023-09-29] MEDS ORDERED: Potassium Bicarbonate/Cit Ac 20 MEQ TAB PO SCH ×2 (09:00→17:00)
[2023-09-29] MEDS ORDERED: Magnesium 2 GM/50 ML(in water) 2 GM in Premix 1 BAG IVPB SCH ×2 (09:00→16:30)
[2023-09-29] MEDS ORDERED: PHENYLEPHRINE-NS 100 MCG/ML 10 ML SYRINGE ONE (09:03)
[2023-09-29] MEDS ORDERED: ePHEDrine Sulfate 50 MG/10 ML VIAL ONE (09:08)
[2023-09-29] MEDS: Potassium Chloride 20 MEQ in Premix 1 BAG IVPB SCH ×3 (10:28→23:41)
[2023-09-29] MEDS: Enoxaparin 30 MG (0.3 mL) SYRINGE SC SCH (10:28)
[2023-09-29] MEDS: Pantoprazole 40 MG VIAL IVP SCH ×2 (10:29→20:34)
[2023-09-29] MEDS: Escitalopram Oxalate 20 mg Tablet PO SCH (10:37)
[2023-09-29 19:03] LABS: Anion Gap 11 mmol/L (10-20); BUN (Urea Nitrogen) 4 mg/dL (8.4-25.7); Calc. Creatinine Clearance 140 mL/min (70-130); Calcium 7.5 mg/dL (7.8-10.44); Carbon Dioxide 29 mmol/L (22-29); Chloride 103 mmol/L (98-107); Estimated GFR 125; Glucose 92 mg/dL (70-105); Potassium 3.2 mmol/L (3.5-5.1); Sodium 140 mmol/L (136-145)
[2023-09-29 19:06] LABS: Magnesium 2.8 mg/dL (1.6-2.6); Phosphorus 1.8 mg/dL (2.3-4.7)
[2023-09-29] MEDS: OLANZapine ODT 5 MG TAB PO SCH (20:37)
[2023-09-29] MEDS: Atorvastatin Calcium 20 MG TAB PO SCH (20:37)
[2023-09-29] MEDS ORDERED: Potassium Phosphate 9 MMOL in Sodium Chloride 0.9% 100 ML IVPB SCH (23:15)
[2023-09-30] MEDS: Potassium Chloride 20 MEQ in Premix 1 BAG IVPB SCH (01:52)
[2023-09-30] MEDS: Lactated Ringer's 1,000 ML IV SCH ×2 (06:28→17:00)
[2023-09-30 07:01] LABS: #Eosinphils 0.1 thou/uL (0.0-0.7); #Monocytes 0.8 thou/uL (0.11-0.59); #Neutrophils 6.1 thou/uL (1.40-6.50); %Basophils 0.2 % (0.0-1.0); %Eosinophils 1.1 % (0.0-10.0); %Lymphocytes 12.9 % (21.0-51.0); %Monocytes 9.2 % (0.0-10.0); %Neutrophils 75.4 % (42.0-75.0); Hematocrit 40.8 % (42.0-52.0); Hemoglobin 13.8 g/dL (14.0-18.0); Mean Corpuscular HGB CONC 33.8 g/dL (32.0-36.0); Mean Corpuscular Hemoglobin 32.1 pg (27.0-31.0); Mean Corpuscular Volume 94.9 fl (78.0-98.0); Mean Platelet Volume 10.4 fL (7.4-10.4); Platelet Count 122 10x3/uL (130-400); RBC Distribution Width 14.6 % (11.5-14.5); White Blood Cell (WBC) Count 8.2 10x3/uL (4.8-10.8)
[2023-09-30 07:44] LABS: ALT (SGPT) 38 U/L (8-55); AST (SGOT) 38 U/L (5-34); Albumin 2.7 g/dL (3.5-5.0); Alkaline Phosphatase 143 U/L (40-110); Anion Gap 13 mmol/L (10-20); BUN (Urea Nitrogen) 4 mg/dL (8.4-25.7); Bilirubin, Total 1.4 mg/dL (0.2-1.2); Calc. Creatinine Clearance 150 mL/min (70-130); Calcium 7.5 mg/dL (7.8-10.44); Carbon Dioxide 26 mmol/L (22-29); Chloride 101 mmol/L (98-107); Estimated GFR 127; Globulin 2.2 g/dL (2.4-3.5); Glucose 65 mg/dL (70-105); Magnesium 1.8 mg/dL (1.6-2.6); Potassium 3.6 mmol/L (3.5-5.1); Protein, Total 4.9 g/dL (6.0-8.3); Sodium 136 mmol/L (136-145)
[2023-09-30 08:11] LABS: Lipase 7 U/L (8-78); Phosphorus 2.2 mg/dL (2.3-4.7)
[2023-09-30] MEDS ORDERED: Potassium Phosphate 9 MMOL in Sodium Chloride 0.9% 100 ML IVPB SCH (08:30)
[2023-09-30] MEDS ORDERED: Ondansetron PF 4 MG/2 ML Vial IVP SCH (08:45)
[2023-09-30] MEDS: Pantoprazole 40 MG VIAL IVP SCH ×2 (09:02→20:30)
[2023-09-30] MEDS: Enoxaparin 30 MG (0.3 mL) SYRINGE SC SCH (09:02)
[2023-09-30] MEDS: Escitalopram Oxalate 20 mg Tablet PO SCH (09:02)
[2023-09-30] MEDS ORDERED: Magnesium 2 GM/50 ML(in water) 2 GM in Premix 1 BAG IVPB SCH (10:30)
[2023-09-30] MEDS ORDERED: Dextrose 50% Abboject 50 ML SYRINGE ONE (13:02)
[2023-09-30] MEDS ORDERED: Famotidine/PF 20 mg/2ml Vial ONE (13:52)
[2023-09-30] MEDS ORDERED: PROPOFOL 20 ML ONE (13:55)
[2023-09-30] MEDS ORDERED: Lidocaine 2% PF 5 ML VIAL ONE (13:55)
[2023-09-30] MEDS ORDERED: fentaNYL 50 mcg/mL 1 mL Vial ONE (13:55)
[2023-09-30] MEDS ORDERED: Rocuronium Bromide 10 MG/ML (10ML VIAL) ONE (13:59)
[2023-09-30] MEDS ORDERED: CEFAZOLIN 2 GM VIAL ONE (14:02)
[2023-09-30] MEDS ORDERED: Sodium Chloride 0.9% 100 ML ONE (14:02)
[2023-09-30] MEDS ORDERED: Albumin 5% 500 ML ONE (14:22)
[2023-09-30] MEDS ORDERED: Iopamidol 30 ML ONE (14:33)
[2023-09-30] MEDS ORDERED: Promethazine HCl 25 MG/ML VIAL IM PRN (14:39)
[2023-09-30] MEDS ORDERED: Ondansetron HCl/PF 4 MG/2 ML Vial IVP PRN (14:39)
[2023-09-30] MEDS ORDERED: Ondansetron PF 4 MG/2 ML Vial ONE (14:41)
[2023-09-30] MEDS ORDERED: SUGAMMADEX SODIUM 200 MG/2 ML VIAL ONE ×2 (14:41→14:47)
[2023-09-30] MEDS: OLANZapine ODT 5 MG TAB PO SCH (20:30)
[2023-09-30] MEDS: Atorvastatin Calcium 20 MG TAB PO SCH (20:30)
[2023-10-01] MEDS: Lactated Ringer's 1,000 ML IV SCH ×3 (04:50→21:53)
[2023-10-01 05:12] LABS: #Eosinphils 0.1 thou/uL (0.0-0.7); #Monocytes 1.1 thou/uL (0.11-0.59); #Neutrophils 5.5 thou/uL (1.40-6.50); %Basophils 0.2 % (0.0-1.0); %Eosinophils 1.7 % (0.0-10.0); %Monocytes 13.6 % (0.0-10.0); %Neutrophils 66.4 % (42.0-75.0); Hematocrit 38.3 % (42.0-52.0); Hemoglobin 12.8 g/dL (14.0-18.0); Mean Corpuscular HGB CONC 33.4 g/dL (32.0-36.0); Mean Corpuscular Hemoglobin 31.9 pg (27.0-31.0); Mean Corpuscular Volume 95.5 fl (78.0-98.0); Mean Platelet Volume 11.1 fL (7.4-10.4); RBC Distribution Width 14.5 % (11.5-14.5); Red Blood Cell (RBC) Count 4.01 mill/uL (4.70-6.10); White Blood Cell (WBC) Count 8.3 10x3/uL (4.8-10.8)
[2023-10-01 05:41] LABS: ALT (SGPT) 28 U/L (8-55); AST (SGOT) 26 U/L (5-34); Albumin 3.1 g/dL (3.5-5.0); Alkaline Phosphatase 113 U/L (40-110); Anion Gap 10 mmol/L (10-20); BUN (Urea Nitrogen) Less than 4 mg/dL (8.4-25.7); Bilirubin, Total 1.3 mg/dL (0.2-1.2); Calc. Creatinine Clearance 132 mL/min (70-130); Calcium 7.9 mg/dL (7.8-10.44); Carbon Dioxide 33 mmol/L (22-29); Chloride 99 mmol/L (98-107); Estimated GFR 123; Globulin 2.1 g/dL (2.4-3.5); Glucose 80 mg/dL (70-105); Phosphorus 2.2 mg/dL (2.3-4.7); Potassium 3.1 mmol/L (3.5-5.1); Protein, Total 5.2 g/dL (6.0-8.3); Sodium 139 mmol/L (136-145)
[2023-10-01 06:10] LABS: Platelet Count 117 10x3/uL (130-400)
[2023-10-01] MEDS ORDERED: Ibuprofen 800 MG TAB PO PRN (06:34)
[2023-10-01] MEDS ORDERED: Ibuprofen 600 MG TAB PO PRN (06:38)
[2023-10-01] MEDS ORDERED: Potassium Phosphate 9 MMOL in Sodium Chloride 0.9% 100 ML IVPB SCH (07:00)
[2023-10-01] MEDS: Enoxaparin 30 MG (0.3 mL) SYRINGE SC SCH (08:11)
[2023-10-01] MEDS: Pantoprazole 40 MG VIAL IVP SCH ×2 (08:11→20:54)
[2023-10-01] MEDS: Escitalopram Oxalate 20 mg Tablet PO SCH (08:12)
[2023-10-01] MEDS: Potassium Chloride 20 MEQ in Premix 1 BAG IVPB SCH ×2 (08:12→12:21)
[2023-10-01] MEDS: Ondansetron PF 4 MG/2 ML Vial IVP PRN ×2 (15:20→21:03)
[2023-10-01] MEDS: Dronabinol 2.5 MG CAP PO SCH (17:17)
[2023-10-01] MEDS: Megestrol Acetate 40 MG TAB PO SCH (20:54)
[2023-10-01] MEDS: Atorvastatin Calcium 20 MG TAB PO SCH (20:54)
[2023-10-01] MEDS: OLANZapine ODT 5 MG TAB PO SCH (20:54)
[2023-10-02] MEDS: Ondansetron PF 4 MG/2 ML Vial IVP PRN ×2 (06:26→20:14)
[2023-10-02 06:35] LABS: #Eosinphils 0.2 thou/uL (0.0-0.7); #Monocytes 1.2 thou/uL (0.11-0.59); #Neutrophils 4.9 thou/uL (1.40-6.50); %Basophils 0.3 % (0.0-1.0); %Eosinophils 2.1 % (0.0-10.0); %Lymphocytes 19.3 % (21.0-51.0); %Monocytes 15.1 % (0.0-10.0); %Neutrophils 62.2 % (42.0-75.0); Hematocrit 39.2 % (42.0-52.0); Hemoglobin 13.4 g/dL (14.0-18.0); Mean Corpuscular HGB CONC 34.2 g/dL (32.0-36.0); Mean Corpuscular Hemoglobin 32.4 pg (27.0-31.0); Mean Corpuscular Volume 94.9 fl (78.0-98.0); Mean Platelet Volume 10.8 fL (7.4-10.4); Platelet Count 158 10x3/uL (130-400); RBC Distribution Width 14.3 % (11.5-14.5); Red Blood Cell (RBC) Count 4.13 mill/uL (4.70-6.10); White Blood Cell (WBC) Count 7.8 10x3/uL (4.8-10.8)
[2023-10-02 07:10] LABS: ALT (SGPT) 24 U/L (8-55); AST (SGOT) 29 U/L (5-34); Albumin 2.8 g/dL (3.5-5.0); Alkaline Phosphatase 107 U/L (40-110); Anion Gap 16 mmol/L (10-20); BUN (Urea Nitrogen) Less than 4 mg/dL (8.4-25.7); Bilirubin, Total 0.9 mg/dL (0.2-1.2); Calc. Creatinine Clearance 132 mL/min (70-130); Calcium 8.1 mg/dL (7.8-10.44); Carbon Dioxide 27 mmol/L (22-29); Chloride 102 mmol/L (98-107); Estimated GFR 123; Globulin 2.6 g/dL (2.4-3.5); Glucose 79 mg/dL (70-105); Magnesium 1.6 mg/dL (1.6-2.6); Phosphorus 2.3 mg/dL (2.3-4.7); Potassium 3.9 mmol/L (3.5-5.1); Protein, Total 5.4 g/dL (6.0-8.3); Sodium 141 mmol/L (136-145)
[2023-10-02] MEDS: Lactated Ringer's 1,000 ML IV SCH ×2 (09:05→17:26)
[2023-10-02] MEDS: Escitalopram Oxalate 20 mg Tablet PO SCH (09:05)
[2023-10-02] MEDS: Megestrol Acetate 40 MG TAB PO SCH ×2 (09:05→20:16)
[2023-10-02] MEDS: Enoxaparin 30 MG (0.3 mL) SYRINGE SC SCH (09:05)
[2023-10-02] MEDS: Dronabinol 2.5 MG CAP PO SCH ×2 (09:05→17:26)
[2023-10-02] MEDS: Pantoprazole 40 MG VIAL IVP SCH ×2 (09:06→20:14)
[2023-10-02] MEDS: OLANZapine ODT 5 MG TAB PO SCH (20:16)
[2023-10-02] MEDS: Atorvastatin Calcium 20 MG TAB PO SCH (20:16)
[2023-10-03] MEDS: Lactated Ringer's 1,000 ML IV SCH ×2 (04:59→13:02)
[2023-10-03 08:05] LABS: #Eosinphils 0.1 thou/uL (0.0-0.7); #Monocytes 1.2 thou/uL (0.11-0.59); #Neutrophils 4.8 thou/uL (1.40-6.50); %Basophils 0.4 % (0.0-1.0); %Eosinophils 1.7 % (0.0-10.0); %Lymphocytes 18.5 % (21.0-51.0); %Monocytes 15.9 % (0.0-10.0); %Neutrophils 62.3 % (42.0-75.0); Hemoglobin 13.3 g/dL (14.0-18.0); Mean Corpuscular HGB CONC 34.1 g/dL (32.0-36.0); Mean Corpuscular Hemoglobin 31.9 pg (27.0-31.0); Mean Corpuscular Volume 93.5 fl (78.0-98.0); Platelet Count 177 10x3/uL (130-400); Red Blood Cell (RBC) Count 4.17 mill/uL (4.70-6.10); White Blood Cell (WBC) Count 7.6 10x3/uL (4.8-10.8)
[2023-10-03 08:33] LABS: ALT (SGPT) 22 U/L (8-55); AST (SGOT) 24 U/L (5-34); Albumin 2.7 g/dL (3.5-5.0); Alkaline Phosphatase 91 U/L (40-110); Anion Gap 14 mmol/L (10-20); BUN (Urea Nitrogen) Less than 4 mg/dL (8.4-25.7); Bilirubin, Total 0.8 mg/dL (0.2-1.2); Calc. Creatinine Clearance 168 mL/min (70-130); Calcium 7.7 mg/dL (7.8-10.44); Carbon Dioxide 25 mmol/L (22-29); Chloride 99 mmol/L (98-107); Estimated GFR 132; Glucose 90 mg/dL (70-105); Magnesium 1.3 mg/dL (1.6-2.6); Phosphorus 1.9 mg/dL (2.3-4.7); Potassium 3.3 mmol/L (3.5-5.1); Protein, Total 4.7 g/dL (6.0-8.3); Sodium 135 mmol/L (136-145)
[2023-10-03] MEDS ORDERED: Magnesium 2 GM/50 ML(in water) 2 GM in Premix 1 BAG IVPB SCH (09:00)
[2023-10-03] MEDS: Pantoprazole 40 MG VIAL IVP SCH ×2 (09:26→23:03)
[2023-10-03] MEDS: Dronabinol 2.5 MG CAP PO SCH ×2 (09:26→16:55)
[2023-10-03] MEDS: Escitalopram Oxalate 20 mg Tablet PO SCH (09:26)
[2023-10-03] MEDS: Enoxaparin 30 MG (0.3 mL) SYRINGE SC SCH (09:26)
[2023-10-03] MEDS: Megestrol Acetate 40 MG TAB PO SCH ×2 (09:26→23:02)
[2023-10-03] MEDS: K-Phos Neutral 250 MG TAB PO SCH ×2 (13:02→16:55)
[2023-10-03 15:28] LABS: Anion Gap 15 mmol/L (10-20); BUN (Urea Nitrogen) Less than 4 mg/dL (8.4-25.7); Calc. Creatinine Clearance 146 mL/min (70-130); Calcium 7.8 mg/dL (7.8-10.44); Carbon Dioxide 25 mmol/L (22-29); Chloride 98 mmol/L (98-107); Estimated GFR 127; Glucose 96 mg/dL (70-105); Potassium 3.3 mmol/L (3.5-5.1); Sodium 135 mmol/L (136-145)
[2023-10-03 15:40] LABS: Phosphorus 2.4 mg/dL (2.3-4.7)
[2023-10-03] MEDS: Potassium Chloride 20 MEQ in Premix 1 BAG IVPB SCH ×2 (16:55→20:20)
[2023-10-03] MEDS: OLANZapine ODT 5 MG TAB PO SCH (23:02)
[2023-10-03] MEDS: Atorvastatin Calcium 20 MG TAB PO SCH (23:02)
[2023-10-04] MEDS: Lactated Ringer's 1,000 ML IV SCH (02:50)
[2023-10-04 06:05] LABS: #Basophils 0.1 thou/uL (0.0-0.2); #Eosinphils 0.2 thou/uL (0.0-0.7); #Monocytes 1.6 thou/uL (0.11-0.59); #Neutrophils 6.3 thou/uL (1.40-6.50); %Basophils 0.7 % (0.0-1.0); %Eosinophils 1.8 % (0.0-10.0); %Lymphocytes 17.8 % (21.0-51.0); %Monocytes 15.7 % (0.0-10.0); %Neutrophils 62.9 % (42.0-75.0); Hematocrit 41.7 % (42.0-52.0); Hemoglobin 14.2 g/dL (14.0-18.0); Mean Corpuscular HGB CONC 34.1 g/dL (32.0-36.0); Mean Corpuscular Hemoglobin 32.3 pg (27.0-31.0); Mean Platelet Volume 9.4 fL (7.4-10.4); Platelet Count 223 10x3/uL (130-400); RBC Distribution Width 14.3 % (11.5-14.5); Red Blood Cell (RBC) Count 4.39 mill/uL (4.70-6.10)
[2023-10-04 06:42] LABS: Anion Gap 18 mmol/L (10-20); BUN (Urea Nitrogen) Less than 4 mg/dL (8.4-25.7); Calc. Creatinine Clearance 143 mL/min (70-130); Carbon Dioxide 23 mmol/L (22-29); Chloride 100 mmol/L (98-107); Potassium 3.8 mmol/L (3.5-5.1); Sodium 137 mmol/L (136-145)
[2023-10-04 06:43] LABS: ALT (SGPT) 31 U/L (8-55); AST (SGOT) 37 U/L (5-34); Albumin 2.9 g/dL (3.5-5.0); Alkaline Phosphatase 97 U/L (40-110); Bilirubin, Total 0.8 mg/dL (0.2-1.2); Calcium 7.8 mg/dL (7.8-10.44); Estimated GFR 126; Globulin 2.4 g/dL (2.4-3.5); Glucose 67 mg/dL (70-105); Magnesium 1.9 mg/dL (1.6-2.6); Phosphorus 2.4 mg/dL (2.3-4.7); Protein, Total 5.3 g/dL (6.0-8.3)
[2023-10-04] MEDS ORDERED: Simethicone 40 MG/0.6 ML Drop 30 ML BOT PO SCH (09:00)
[2023-10-04] MEDS: Dronabinol 2.5 MG CAP PO SCH ×2 (09:31→17:15)
[2023-10-04] MEDS: Sucralfate 1 GM/10 ML UDCUP PO SCH ×4 (09:32→22:57)
[2023-10-04] MEDS: Enoxaparin 30 MG (0.3 mL) SYRINGE SC SCH (09:32)
[2023-10-04] MEDS: Escitalopram Oxalate 20 mg Tablet PO SCH (09:32)
[2023-10-04] MEDS: K-Phos Neutral 250 MG TAB PO SCH ×3 (09:32→17:15)
[2023-10-04] MEDS: Dextrose 5%-Lactated Ringers 1,000 ML IV SCH ×2 (09:32→17:15)
[2023-10-04] MEDS: Pantoprazole 40 MG VIAL IVP SCH ×2 (09:32→22:58)
[2023-10-04] MEDS: Megestrol Acetate 40 MG TAB PO SCH (09:32)
[2023-10-04] MEDS ORDERED: Lidocaine 2% Viscous Solution 10 ML, Aluminum & Magnesium Hydroxide 30 ML SSW SCH (10:30)
[2023-10-04] MEDS: Simethicone 40 MG/0.6 ML Drop 30 ML BOT PO SCH ×2 (13:01→17:15)
[2023-10-04] MEDS: traZODone HCl 50 MG TAB PO PRN (22:58)
[2023-10-04] MEDS: OLANZapine ODT 5 MG TAB PO SCH (22:58)
[2023-10-04] MEDS: Atorvastatin Calcium 20 MG TAB PO SCH (22:58)
[2023-10-04] MEDS: Lidocaine 2% Viscous Solution 10 ML, Aluminum & Magnesium Hydroxide 30 ML SSW SCH (23:01)
[2023-10-05] MEDS: Simethicone 40 MG/0.6 ML Drop 30 ML BOT PO SCH ×4 (01:53→17:00)
[2023-10-05] MEDS: Dextrose 5%-Lactated Ringers 1,000 ML IV SCH (04:35)
[2023-10-05 04:48] LABS: #Eosinphils 0.1 thou/uL (0.0-0.7); #Monocytes 1.3 thou/uL (0.11-0.59); #Neutrophils 4.7 thou/uL (1.40-6.50); %Basophils 0.4 % (0.0-1.0); %Eosinophils 1.5 % (0.0-10.0); %Lymphocytes 22.7 % (21.0-51.0); %Monocytes 15.5 % (0.0-10.0); %Neutrophils 58.9 % (42.0-75.0); Hematocrit 38.2 % (42.0-52.0); Hemoglobin 13.1 g/dL (14.0-18.0); Mean Corpuscular HGB CONC 34.3 g/dL (32.0-36.0); Mean Corpuscular Hemoglobin 32.6 pg (27.0-31.0); Mean Platelet Volume 9.4 fL (7.4-10.4); Platelet Count 234 10x3/uL (130-400); RBC Distribution Width 14.4 % (11.5-14.5); Red Blood Cell (RBC) Count 4.02 mill/uL (4.70-6.10); White Blood Cell (WBC) Count 8.1 10x3/uL (4.8-10.8)
[2023-10-05 05:07] LABS: Phosphorus 2.1 mg/dL (2.3-4.7)
[2023-10-05 05:15] LABS: ALT (SGPT) 29 U/L (8-55); AST (SGOT) 30 U/L (5-34); Albumin 2.7 g/dL (3.5-5.0); Alkaline Phosphatase 90 U/L (40-110); Anion Gap 13 mmol/L (10-20); BUN (Urea Nitrogen) Less than 4 mg/dL (8.4-25.7); Bilirubin, Total 0.8 mg/dL (0.2-1.2); Calc. Creatinine Clearance 120 mL/min (70-130); Calcium 7.8 mg/dL (7.8-10.44); Carbon Dioxide 28 mmol/L (22-29); Chloride 101 mmol/L (98-107); Estimated GFR 119; Globulin 2.3 g/dL (2.4-3.5); Glucose 230 mg/dL (70-105); Magnesium 1.5 mg/dL (1.6-2.6); Potassium 3.4 mmol/L (3.5-5.1); Sodium 139 mmol/L (136-145)
[2023-10-05] MEDS: Lidocaine 2% Viscous Solution 10 ML, Aluminum & Magnesium Hydroxide 30 ML SSW SCH ×3 (06:18→23:02)
[2023-10-05] MEDS ORDERED: Magnesium 2 GM/50 ML(in water) 2 GM in Premix 1 BAG IVPB SCH (09:00)
[2023-10-05] MEDS: Dronabinol 2.5 MG CAP PO SCH ×2 (09:04→16:14)
[2023-10-05] MEDS: Sucralfate 1 GM/10 ML UDCUP PO SCH ×4 (09:04→23:01)
[2023-10-05] MEDS: Pantoprazole 40 MG VIAL IVP SCH ×2 (09:04→23:02)
[2023-10-05] MEDS: Escitalopram Oxalate 20 mg Tablet PO SCH (09:04)
[2023-10-05] MEDS: Enoxaparin 30 MG (0.3 mL) SYRINGE SC SCH (09:04)
[2023-10-05] MEDS: Megestrol Acetate 400 MG/10 ML UDCUP PO SCH (09:04)
[2023-10-05] MEDS: K-Phos Neutral 250 MG TAB PO SCH (09:07)
[2023-10-05] MEDS: D5 LR w/20 mEq KCL 1,000 ML IV SCH (11:49)
[2023-10-05] MEDS ORDERED: Potassium Phosphate 9 MMOL in Sodium Chloride 0.9% 100 ML IVPB SCH (12:00)
[2023-10-05] MEDS ORDERED: K-Phos Neutral 250 MG TAB PO SCH (12:00)
[2023-10-05 16:04] LABS: Anion Gap 11 mmol/L (10-20); BUN (Urea Nitrogen) Less than 4 mg/dL (8.4-25.7); Calc. Creatinine Clearance 132 mL/min (70-130); Calcium 7.8 mg/dL (7.8-10.44); Carbon Dioxide 28 mmol/L (22-29); Chloride 102 mmol/L (98-107); Estimated GFR 123; Glucose 163 mg/dL (70-105); Magnesium 2.1 mg/dL (1.6-2.6); Phosphorus 3.4 mg/dL (2.3-4.7); Potassium 3.5 mmol/L (3.5-5.1); Sodium 137 mmol/L (136-145)
[2023-10-05] MEDS: OLANZapine ODT 5 MG TAB PO SCH (23:02)
[2023-10-05] MEDS: Atorvastatin Calcium 20 MG TAB PO SCH (23:02)
[2023-10-05] MEDS: Ondansetron PF 4 MG/2 ML Vial IVP PRN (23:02)
[2023-10-06] MEDS: Simethicone 40 MG/0.6 ML Drop 30 ML BOT PO SCH ×2 (02:12→07:34)
[2023-10-06] MEDS ORDERED: Simethicone Chewable 80 MG TAB PO PRN (06:48)
[2023-10-06 07:02] LABS: ALT (SGPT) 34 U/L (8-55); AST (SGOT) 39 U/L (5-34); Albumin 2.9 g/dL (3.5-5.0); Alkaline Phosphatase 89 U/L (40-110); Anion Gap 11 mmol/L (10-20); BUN (Urea Nitrogen) Less than 4 mg/dL (8.4-25.7); Bilirubin, Total 0.8 mg/dL (0.2-1.2); Calc. Creatinine Clearance 140 mL/min (70-130); Calcium 7.9 mg/dL (7.8-10.44); Carbon Dioxide 26 mmol/L (22-29); Chloride 104 mmol/L (98-107); Estimated GFR 125; Globulin 2.5 g/dL (2.4-3.5); Glucose 187 mg/dL (70-105); Magnesium 1.9 mg/dL (1.6-2.6); Phosphorus 2.2 mg/dL (2.3-4.7); Potassium 3.7 mmol/L (3.5-5.1); Protein, Total 5.4 g/dL (6.0-8.3); Sodium 137 mmol/L (136-145)
[2023-10-06] MEDS: Lidocaine 2% Viscous Solution 10 ML, Aluminum & Magnesium Hydroxide 30 ML SSW SCH ×3 (07:05→20:11)
[2023-10-06] MEDS: Dronabinol 2.5 MG CAP PO SCH ×3 (08:53→16:29)
[2023-10-06] MEDS: Escitalopram Oxalate 20 mg Tablet PO SCH ×2 (08:53→09:15)
[2023-10-06] MEDS: Megestrol Acetate 400 MG/10 ML UDCUP PO SCH (08:53)
[2023-10-06] MEDS: Multivits W-Minerals Liquid 15 ML LIQ PER TUBE SCH (08:54)
[2023-10-06] MEDS: Sucralfate 1 GM/10 ML UDCUP PO SCH ×5 (08:54→20:11)
[2023-10-06] MEDS ORDERED: Multivit, Pediatric Liq 50 ML BOTTLE PO SCH (09:00)
[2023-10-06] MEDS: D5 LR w/20 mEq KCL 1,000 ML IV SCH ×2 (09:05→13:25)
[2023-10-06] MEDS: Enoxaparin 30 MG (0.3 mL) SYRINGE SC SCH (09:06)
[2023-10-06] MEDS: Pantoprazole 40 MG VIAL IVP SCH ×2 (09:22→20:13)
[2023-10-06] MEDS ORDERED: Potassium Phosphate 9 MMOL in Sodium Chloride 0.9% 100 ML IVPB SCH (10:00)
[2023-10-06] MEDS ORDERED: Megestrol Acetate 800 MG/20 ML UDCUP PO SCH (10:15)
[2023-10-06] MEDS: OLANZapine ODT 5 MG TAB PO SCH (20:10)
[2023-10-06] MEDS: Atorvastatin Calcium 20 MG TAB PO SCH (20:11)
[2023-10-07] MEDS: D5 LR w/20 mEq KCL 1,000 ML IV SCH ×2 (01:08→16:25)
[2023-10-07 05:24] LABS: Phosphorus 2.8 mg/dL (2.3-4.7)
[2023-10-07 05:29] LABS: ALT (SGPT) 37 U/L (8-55); AST (SGOT) 39 U/L (5-34); Albumin 3.1 g/dL (3.5-5.0); Alkaline Phosphatase 109 U/L (40-110); Anion Gap 13 mmol/L (10-20); BUN (Urea Nitrogen) Less than 4 mg/dL (8.4-25.7); Bilirubin, Total 0.9 mg/dL (0.2-1.2); Calc. Creatinine Clearance 109 mL/min (70-130); Calcium 8.5 mg/dL (7.8-10.44); Carbon Dioxide 23 mmol/L (22-29); Chloride 102 mmol/L (98-107); Estimated GFR 120; Globulin 2.8 g/dL (2.4-3.5); Glucose 181 mg/dL (70-105); Magnesium 1.6 mg/dL (1.6-2.6); Potassium 4.1 mmol/L (3.5-5.1); Protein, Total 5.9 g/dL (6.0-8.3); Sodium 134 mmol/L (136-145)
[2023-10-07] MEDS: Lidocaine 2% Viscous Solution 10 ML, Aluminum & Magnesium Hydroxide 30 ML SSW SCH ×3 (05:42→19:59)
[2023-10-07] MEDS: Pantoprazole 40 MG VIAL IVP SCH ×2 (08:11→19:59)
[2023-10-07] MEDS: Enoxaparin 30 MG (0.3 mL) SYRINGE SC SCH (08:15)
[2023-10-07] MEDS: Multivits W-Minerals Liquid 15 ML LIQ PER TUBE SCH (08:15)
[2023-10-07] MEDS: Dronabinol 2.5 MG CAP PO SCH ×2 (08:15→15:41)
[2023-10-07] MEDS: Sucralfate 1 GM/10 ML UDCUP PO SCH ×4 (08:15→19:59)
[2023-10-07] MEDS: Megestrol Acetate 800 MG/20 ML UDCUP PO SCH (08:15)
[2023-10-07] MEDS: Escitalopram Oxalate 20 mg Tablet PO SCH (08:15)
[2023-10-07 11:22] VITALS: BMI 17.7
[2023-10-07] MEDS: Atorvastatin Calcium 20 MG TAB PO SCH (19:59)
[2023-10-07] MEDS: OLANZapine ODT 5 MG TAB PO SCH (19:59)
[2023-10-08] MEDS: D5 LR w/20 mEq KCL 1,000 ML IV SCH ×2 (05:54→17:16)
[2023-10-08] MEDS: Lidocaine 2% Viscous Solution 10 ML, Aluminum & Magnesium Hydroxide 30 ML SSW SCH (05:54)
[2023-10-08 06:31] LABS: Phosphorus 2.8 mg/dL (2.3-4.7)
[2023-10-08 06:38] LABS: ALT (SGPT) 36 U/L (8-55); AST (SGOT) 31 U/L (5-34); Albumin 3.2 g/dL (3.5-5.0); Alkaline Phosphatase 120 U/L (40-110); BUN (Urea Nitrogen) Less than 4 mg/dL (8.4-25.7); Bilirubin, Total 1.2 mg/dL (0.2-1.2); Calc. Creatinine Clearance 111 mL/min (70-130); Calcium 8.6 mg/dL (7.8-10.44); Carbon Dioxide 23 mmol/L (22-29); Chloride 101 mmol/L (98-107); Estimated GFR 121; Globulin 2.8 g/dL (2.4-3.5); Glucose 233 mg/dL (70-105); Magnesium 1.7 mg/dL (1.6-2.6); Potassium 4.2 mmol/L (3.5-5.1); Sodium 132 mmol/L (136-145)
[2023-10-08 06:46] LABS: Anion Gap 12 mmol/L (10-20)
[2023-10-08] MEDS: Megestrol Acetate 800 MG/20 ML UDCUP PO SCH (08:52)
[2023-10-08] MEDS: Sucralfate 1 GM/10 ML UDCUP PO SCH ×4 (08:52→21:13)
[2023-10-08] MEDS: Multivits W-Minerals Liquid 15 ML LIQ PER TUBE SCH (08:53)
[2023-10-08] MEDS: Enoxaparin 30 MG (0.3 mL) SYRINGE SC SCH (08:53)
[2023-10-08] MEDS: Escitalopram Oxalate 20 mg Tablet PO SCH (08:53)
[2023-10-08] MEDS: Dronabinol 2.5 MG CAP PO SCH (08:53)
[2023-10-08] MEDS: Pantoprazole 40 MG VIAL IVP SCH ×2 (08:53→21:29)
[2023-10-08] MEDS ORDERED: Lidocaine 2% Viscous Solution 10 ML, Aluminum & Magnesium Hydroxide 30 ML SSW PRN (10:05)
[2023-10-08] MEDS: HumaLOG 300 UNITS/3 ML VIAL SC PRN (13:50)
[2023-10-08] MEDS: OLANZapine ODT 5 MG TAB PO SCH (21:11)
[2023-10-08] MEDS ORDERED: Ondansetron ODT 4 MG TAB PO PRN (21:23)
[2023-10-08] MEDS: traZODone HCl 50 MG TAB PO PRN (23:27)
[2023-10-08] MEDS: Acetaminophen 325 MG TAB PO PRN (23:27)
[2023-10-09] MEDS: Acetaminophen 325 MG TAB PO PRN (03:30)
[2023-10-09 08:01] VITALS: BP 112/75; TEMP 97.4
[2023-10-09] MEDS: Enoxaparin 30 MG (0.3 mL) SYRINGE SC SCH (09:02)
[2023-10-09] MEDS: Escitalopram Oxalate 20 mg Tablet PO SCH (09:02)
[2023-10-09] MEDS: Sucralfate 1 GM/10 ML UDCUP PO SCH (09:02)
== END 2023-10-09 11:05 | DRG 356 ==
LOC: ERS 13:36 → ERHOLD 20:52 → OBSVTOIN 09-28 09:01 → T4-A 09-28 14:42
PROVIDERS: ADMIT Student in an Organized Health Care Education/Training Program; ATTEND Student in an Organized Health Care Education/Training Program
PROC: 0DB58ZX Excision of Esophagus, Via Natural or Artificial Opening Endoscopic, Diagnostic (ICD-10-PCS; principal; 2023-09-29)
PROC: 0WJG4ZZ Inspection of Peritoneal Cavity, Percutaneous Endoscopic Approach (ICD-10-PCS; 2023-09-30)
DX: K22.10 Ulcer of esophagus without bleeding (principal); E43 Unspecified severe protein-calorie malnutrition; E87.0 Hyperosmolality and hypernatremia; Z68.1 Body mass index [BMI] 19.9 or less, adult; E87.1 Hypo-osmolality and hyponatremia; E87.20 Acidosis, unspecified; E87.3 Alkalosis; Z51.5 Encounter for palliative care; E86.0 Dehydration; E11.9 Type 2 diabetes mellitus without complications; R53.81 Other malaise; R62.7 Adult failure to thrive; K80.20 Calculus of gallbladder without cholecystitis without obstruction; E83.42 Hypomagnesemia; E87.6 Hypokalemia; E83.39 Other disorders of phosphorus metabolism; E88.89 Other specified metabolic disorders; T73.0XXA Starvation, initial encounter; E78.5 Hyperlipidemia, unspecified; R62.50 Unspecified lack of expected normal physiological development in childhood; K22.2 Esophageal obstruction; K21.9 Gastro-esophageal reflux disease without esophagitis; Z79.84 Long term (current) use of oral hypoglycemic drugs; Z79.899 Other long term (current) drug therapy
CPT/HCPCS: 36415; 36416; 51701; 71045; 74018; 76705; 80053; 81001; 82010; 82805; 83605; 83690; 83735; 84100; 84484; 85025; 88305; 88312; 88313; 88341; 88342; 93005; 93010; 96360; 96361; C9113; J1650; J1815; J2001; J2405; J2704; J3010; J3475; J3480; J3490; J7070; J7120; J7999; P9045; Q0167; Q9967; S0028; S0179